=== PATIENT | male | born 1940 | race Caucasian/White ===

== ENCOUNTER 2025-03-19 08:54 | Day surgery (SDC) | payer MEDICARE ==
[~2025-03-19 08:54] MED LIST: Sodium Chloride 0.9% 10 ML Syringe FLUSH PRN; Sodium Chloride 0.9% 10 ML Syringe FLUSH SCH
[2025-03-19] MEDS: Lactated Ringers 1,000 ML IV SCH (09:20)
[2025-03-19] MEDS ORDERED: fentaNYL 100 MCG/2 ML SDV IVPUSH PRN (09:57)
[2025-03-19] MEDS ORDERED: Ondansetron 4 MG/2 ML SDV IVPUSH PRN (09:57)
[2025-03-19] MEDS ORDERED: Propofol 200 MG/20 ML SDV ONE (10:24)
== END 2025-03-19 11:27 | disposition home or self-care (01) ==
LOC: JD.SDS 08:54
PROVIDERS: ATTEND Surgery
DX: K21.9 Gastro-esophageal reflux disease without esophagitis (principal); I10 Essential (primary) hypertension; E78.5 Hyperlipidemia, unspecified; E03.9 Hypothyroidism, unspecified; Z88.1 Allergy status to other antibiotic agents; Z79.890 Hormone replacement therapy; Z79.899 Other long term (current) drug therapy; Z87.891 Personal history of nicotine dependence
CPT/HCPCS: 43239; C9777; J2704; J7120; 00731; 43499; 88305; 99100